=== PATIENT | male | born 1965 | race Caucasian/White ===

== ENCOUNTER 2017-04-16 03:02 | Inpatient (IN) | payer SELFPAY ==
[2017-04-16 03:53] LABS: BASO % 0.2 % (0-2); EOS % 0.2 % (0-7); HCT-HEMATOCRIT 39.8 % (36.0-53.5); HGB-HEMOGLOBIN 12.5 gm/dl (13.5-17.0); IMMATURE GRANULOCYTES ABSOLUTE 0.11 tho/cmm (0-0.03); IMMATURE GRANULOCYTES PERCENT 0.6 % (0-0.3); LYMPH ABSOLUTE COUNT 1.1 tho/cmm (0.8-4.5); MCH (MEAN CORPUSCULAR HGB) 28.3 pg (28.0-32.0); MCHC MEAN CORPUSCULAR HGB CONC 31.4 % (32.0-36.0); MEAN PLATELET VOLUME 8.6 cmc (9.4-12.4); MONO % 4.7 % (0-12); MONOCYTE ABSOLUTE COUNT 0.9 tho/cmm (0.0-1.2); NEUTROPHIL ABSOLUTE COUNT 16.1 tho/cmm (1.6-8.0); NEUTROPHIL-AUTOMATED 16.1 tho/cmm (1.6-8.0); NEUTROPHILS % 88.3 % (40-80); PLATELET COUNT 199 tho/cmm (150-450); RED BLOOD COUNT 4.42 mil/cmm (4.40-5.70); RED CELL DISTRIBUTION WIDTH 14.6 % (12.4-16.4); WHITE BLOOD COUNT 18.2 tho/cmm (4.0-10.0)
[2017-04-16] MEDS ORDERED: ATIVAN2 M1 PO (03:59)
[2017-04-16] MEDS ORDERED: LASIX80 M1 PO (04:00)
[2017-04-16] MEDS ORDERED: NEURONTIN100 M1 PO (04:01)
[2017-04-16] MEDS ORDERED: GLUCOTROL10 M1 PO (04:01)
[2017-04-16] MEDS ORDERED: COZAAR100 M1 PO (04:02)
[2017-04-16] MEDS ORDERED: METOLAZONE10 M1 PO (04:03)
[2017-04-16] MEDS ORDERED: VITAMIN D35000 UNI3 PO (04:04)
[2017-04-16] MEDS ORDERED: NORVASC5 M2 PO (04:04)
[2017-04-16] MEDS ORDERED: BYSTOLIC10 M1 PO (04:05)
[2017-04-16] MEDS ORDERED: SYNTHROID25 MC1 PO (04:05)
[2017-04-16 04:15] LABS: ANION GAP 12 mmol/L (0-20); BLOOD UREA NITROGEN 71 mg/dl (6-24); CALCIUM 6.8 mg/dl (8.5-10.5); CARBON DIOXIDE-VENOUS 24 mmol/L (22-32); CHLORIDE 108 mmol/l (96-110); CREATININE 7.01 mg/dl (0.60-1.30); GLUCOSE 148 mg/dL (70-110); SODIUM 140 mmol/L (135-145); eGFR VALUE FOR BLACK 10 mL/Min
[2017-04-16 08:44] LABS: ABG CO2 ARTERIAL 25 mmol/L (21-27); ARTERIAL BLD GAS O2 SATURATION 92 % (95-98); ARTERIAL BLOOD GAS PCO2 57 mmHg (32-45); ARTERIAL PO2 68 mmHg (70-100); BICARBONATE 23 mmol/L (21-28); BLOOD GAS BASE EXCESS -5 mM/L (-/+3); PH 7.23 Units (7.35-7.45)
[2017-04-16 10:13] LABS: ABG CO2 ARTERIAL 24 mmol/L (21-27); ARTERIAL BLD GAS O2 SATURATION 90 % (95-98); ARTERIAL BLOOD GAS PCO2 48 mmHg (32-45); ARTERIAL PO2 59 mmHg (70-100); BICARBONATE 22 mmol/L (21-28); BLOOD GAS BASE EXCESS -4 mM/L (-/+3); PH 7.29 Units (7.35-7.45)
[2017-04-16 11:14] LABS: PROCALCITONIN 47.05 ng/ml (0.05-0.09)
[2017-04-16] MEDS ORDERED: ATORVASTATIN CA80 M1 PO (15:13)
--- NOTE | 2017-04-16 18:08 | NUR ---
04/16/17 @ [address] GIL ABOUT CENTRAL LINE NEED, DR. GIL DID NOT FEEL IT WAS NECESSARY TO PUT IN A CENTRAL LINE AT THIS TIME. I CONTACTED ABNER HUNT CRNA TO PLACE PIV. PIV WAS PLACED BY ABNER PAREKH. DR. GIL WAS CONTACTED AT 1645 ABOUT POSITIVE BLOOD CULTURES ON PATIENT. DR. GENTILE WAS NOTIFIED AT 1532 ABOUT POSITIVE BLOOD CULTURES AND ABOUT PROBABLE OSTEOMYELITIS. DR. GENTILE IS NOW AWARE. WANTS TO CONTINUE WITH ANTIBIOTICS. KAELYN MONGE RN
[2017-04-17 06:11] LABS: ALB/GLOB RATIO 0.2 (0.8-2.0); ALBUMIN 1.1 g/dl (3.5-5.0); ALKALINE PHOSPHATASE 66 U/L (33-138); ALT/SGPT 16 U/L (12-78); AST/SGOT 14 U/L (10-40); BASO % 0.1 % (0-2); BILIRUBIN,TOTAL 0.3 mg/dl (0.0-1.5); BLOOD UREA NITROGEN 73 mg/dl (6-24); CALCIUM 7.4 mg/dl (8.5-10.5); CARBON DIOXIDE-VENOUS 23 mmol/L (22-32); CHLORIDE 102 mmol/l (96-110); CREATININE 8.74 mg/dl (0.60-1.30); HCT-HEMATOCRIT 37.1 % (36.0-53.5); HGB-HEMOGLOBIN 11.4 gm/dl (13.5-17.0); IMMATURE GRANULOCYTES ABSOLUTE 0.13 tho/cmm (0-0.03); IMMATURE GRANULOCYTES PERCENT 0.7 % (0-0.3); LYMPH ABSOLUTE COUNT 0.4 tho/cmm (0.8-4.5); MCHC MEAN CORPUSCULAR HGB CONC 30.7 % (32.0-36.0); MCV (MEAN CELL VOLUME) 91.2 fl (82.0-96.0); MEAN PLATELET VOLUME 9.5 cmc (9.4-12.4); MONO % 3.5 % (0-12); MONOCYTE ABSOLUTE COUNT 0.7 tho/cmm (0.0-1.2); NEUTROPHIL ABSOLUTE COUNT 17.2 tho/cmm (1.6-8.0); NEUTROPHIL-AUTOMATED 17.2 tho/cmm (1.6-8.0); NEUTROPHILS % 93.7 % (40-80); PHOSPHOROUS 7.6 mg/dl (2.5-4.9); PLATELET COUNT 199 tho/cmm (150-450); RED BLOOD COUNT 4.07 mil/cmm (4.40-5.70); RED CELL DISTRIBUTION WIDTH 14.8 % (12.4-16.4); SODIUM 135 mmol/L (135-145); WHITE BLOOD COUNT 18.3 tho/cmm (4.0-10.0); eGFR VALUE FOR BLACK 7 mL/Min
[2017-04-17 06:13] LABS: ANION GAP 15 mmol/L (0-20); POTASSIUM 5.4 mmol/L (3.7-5.1)
[2017-04-17 06:15] LABS: GLUCOSE 357 mg/dL (70-110)
[2017-04-17 14:44] LABS: PROTHROMBIN TIME 11.9 SECONDS (9.0-13.6)
[2017-04-18 05:25] LABS: INR 0.9 INR (0.9-1.1)
[2017-04-18 05:27] LABS: BASO % 0.1 % (0-2); HGB-HEMOGLOBIN 9.9 gm/dl (13.5-17.0); IMMATURE GRANULOCYTES ABSOLUTE 0.11 tho/cmm (0-0.03); IMMATURE GRANULOCYTES PERCENT 0.6 % (0-0.3); LYMPH % 2.1 % (20-45); LYMPH ABSOLUTE COUNT 0.4 tho/cmm (0.8-4.5); MCH (MEAN CORPUSCULAR HGB) 27.9 pg (28.0-32.0); MCHC MEAN CORPUSCULAR HGB CONC 30.9 % (32.0-36.0); MCV (MEAN CELL VOLUME) 90.1 fl (82.0-96.0); MEAN PLATELET VOLUME 9.1 cmc (9.4-12.4); MONO % 6.9 % (0-12); MONOCYTE ABSOLUTE COUNT 1.3 tho/cmm (0.0-1.2); NEUTROPHIL ABSOLUTE COUNT 16.3 tho/cmm (1.6-8.0); NEUTROPHIL-AUTOMATED 16.3 tho/cmm (1.6-8.0); NEUTROPHILS % 90.3 % (40-80); PLATELET COUNT 205 tho/cmm (150-450); RED BLOOD COUNT 3.55 mil/cmm (4.40-5.70); RED CELL DISTRIBUTION WIDTH 15.2 % (12.4-16.4)
[2017-04-18 05:42] LABS: BLOOD UREA NITROGEN 85 mg/dl (6-24); CALCIUM 7.4 mg/dl (8.5-10.5); CARBON DIOXIDE-VENOUS 23 mmol/L (22-32); CHLORIDE 103 mmol/l (96-110); CREATININE 9.85 mg/dl (0.60-1.30); SODIUM 137 mmol/L (135-145); eGFR VALUE FOR BLACK 6 mL/Min
[2017-04-18 05:49] LABS: ANION GAP 17 mmol/L (0-20); GLUCOSE 141 mg/dL (70-110); POTASSIUM 6.1 mmol/L (3.7-5.1)
[2017-04-19 04:39] LABS: BASO % 0.1 % (0-2); HCT-HEMATOCRIT 29.7 % (36.0-53.5); HGB-HEMOGLOBIN 9.3 gm/dl (13.5-17.0); IMMATURE GRANULOCYTES ABSOLUTE 0.23 tho/cmm (0-0.03); IMMATURE GRANULOCYTES PERCENT 1.6 % (0-0.3); LYMPH % 3.1 % (20-45); LYMPH ABSOLUTE COUNT 0.5 tho/cmm (0.8-4.5); MCH (MEAN CORPUSCULAR HGB) 28.3 pg (28.0-32.0); MCHC MEAN CORPUSCULAR HGB CONC 31.3 % (32.0-36.0); MCV (MEAN CELL VOLUME) 90.3 fl (82.0-96.0); MONO % 6.7 % (0-12); NEUTROPHILS % 88.5 % (40-80); PLATELET COUNT 220 tho/cmm (150-450); RED BLOOD COUNT 3.29 mil/cmm (4.40-5.70); RED CELL DISTRIBUTION WIDTH 15.2 % (12.4-16.4); WHITE BLOOD COUNT 14.7 tho/cmm (4.0-10.0)
[2017-04-19 04:52] LABS: BLOOD UREA NITROGEN 79 mg/dl (6-24); CARBON DIOXIDE-VENOUS 23 mmol/L (22-32); CHLORIDE 101 mmol/l (96-110); CREATININE 9.22 mg/dl (0.60-1.30); PHOSPHOROUS 8.6 mg/dl (2.5-4.9); SODIUM 137 mmol/L (135-145); eGFR VALUE FOR BLACK 7 mL/Min
[2017-04-19 05:05] LABS: ANION GAP 18 mmol/L (0-20); GLUCOSE 269 mg/dL (70-110); POTASSIUM 5.1 mmol/L (3.7-5.1)
[2017-04-19 14:30] LABS: PROCALCITONIN 42.02 ng/ml (0.05-0.09)
[2017-04-20 05:10] LABS: HCT-HEMATOCRIT 28.7 % (36.0-53.5); HGB-HEMOGLOBIN 9.1 gm/dl (13.5-17.0); MCH (MEAN CORPUSCULAR HGB) 28.3 pg (28.0-32.0); MCHC MEAN CORPUSCULAR HGB CONC 31.7 % (32.0-36.0); MCV (MEAN CELL VOLUME) 89.4 fl (82.0-96.0); MEAN PLATELET VOLUME 9.1 cmc (9.4-12.4); NEUTROPHIL-AUTOMATED 11.8 tho/cmm (1.6-8.0); PLATELET COUNT 226 tho/cmm (150-450); RED BLOOD COUNT 3.21 mil/cmm (4.40-5.70); RED CELL DISTRIBUTION WIDTH 14.9 % (12.4-16.4); WHITE BLOOD COUNT 13.7 tho/cmm (4.0-10.0)
[2017-04-20 05:18] LABS: C-REACTIVE PROTEIN 13.6 mg/dl (0-0.9)
[2017-04-20 05:33] LABS: PROCALCITONIN 32.66 ng/ml (0.05-0.09)
[2017-04-20 06:46] LABS: BAND % 16 % (0-20); BAND ABSOLUTE COUNT 2.2 tho/cmm (0-2.0)
--- NOTE | 2017-04-20 09:00 | NUR ---
PT REFUSING TO HAVE FARIHA WRAPS TO BLE. STATES " THEY MAKE THEM WORSE."
--- NOTE | 2017-04-20 18:15 | NUR ---
LATE ENTRY FROM 04/19: PATIENT REFUSING FARIHA WRAPS TO BLE. STATES THEY MAKE HIS LEGS MORE SWOLLEN. EDUCATED PATIENT ON HOW THEY HELP WITH SWELLING, PATIENT GETTING MORE AGITATED. WRAPPED LEFT LOWER LEG WITH KERLIX OVER WOUND AND PATIENT TOOK IT OFF AFTER A COUPLE HOURS STATING IT WAS MAKING IT WORSE. SO COVERED WOUND WITH ISLAND DRESSING. ALSO SEEN PATIENT EATING A RUNZA HAMBURGER AND TOLD HIM THAT WASN'T A HEALTHY CHOICE AND SISTER STATES "HE CAN EAT IT, AT LEAST IT IS BETTER THAN [place] AND IS ACTUALLY REAL MEAT." TOLD PATIENT AND FAMILY THAT HE IS ON A DIET FOR HIS KIDNEYS AND TO HELP WITH SWELLING AND THAT FAST FOOD HAS A LOT OF SODIUM IN IT. PATIENT AND FAMILY NOT RECEPTIVE TO INFORMATION.
[2017-04-21 06:13] LABS: HCT-HEMATOCRIT 32.2 % (36.0-53.5); HGB-HEMOGLOBIN 9.9 gm/dl (13.5-17.0); MCH (MEAN CORPUSCULAR HGB) 27.7 pg (28.0-32.0); MCHC MEAN CORPUSCULAR HGB CONC 30.7 % (32.0-36.0); MCV (MEAN CELL VOLUME) 90.2 fl (82.0-96.0); MEAN PLATELET VOLUME 9.3 cmc (9.4-12.4); NEUTROPHIL-AUTOMATED 10.1 tho/cmm (1.6-8.0); PLATELET COUNT 262 tho/cmm (150-450); RED BLOOD COUNT 3.57 mil/cmm (4.40-5.70); RED CELL DISTRIBUTION WIDTH 14.8 % (12.4-16.4); WHITE BLOOD COUNT 12.8 tho/cmm (4.0-10.0)
[2017-04-21 06:20] LABS: BASO % 0.2 % (0-2); EOS % 0.3 % (0-7); IMMATURE GRANULOCYTES ABSOLUTE 0.87 tho/cmm (0-0.03); IMMATURE GRANULOCYTES PERCENT 6.8 % (0-0.3); LYMPH % 6.8 % (20-45); LYMPH ABSOLUTE COUNT 0.9 tho/cmm (0.8-4.5); MONO % 6.6 % (0-12); MONOCYTE ABSOLUTE COUNT 0.8 tho/cmm (0.0-1.2); NEUTROPHIL ABSOLUTE COUNT 10.1 tho/cmm (1.6-8.0); NEUTROPHILS % 79.3 % (40-80)
[2017-04-21 06:31] LABS: ALBUMIN 1.3 g/dl (3.5-5.0); BLOOD UREA NITROGEN 106 mg/dl (6-24); C-REACTIVE PROTEIN 10.9 mg/dl (0-0.9); CALCIUM 7.4 mg/dl (8.5-10.5); CARBON DIOXIDE-VENOUS 24 mmol/L (22-32); CHLORIDE 101 mmol/l (96-110); GLUCOSE 151 mg/dL (70-110); SODIUM 138 mmol/L (135-145)
[2017-04-21 06:36] LABS: ANION GAP 19 mmol/L (0-20)
[2017-04-21 06:37] LABS: eGFR VALUE FOR BLACK 5 mL/Min
[2017-04-21 06:59] LABS: PROCALCITONIN 22.76 ng/ml (0.05-0.09)
[2017-04-21 07:01] LABS: PHOSPHOROUS 10.2 mg/dl (2.5-4.9)
[2017-04-22 05:19] LABS: HCT-HEMATOCRIT 33.3 % (36.0-53.5); HGB-HEMOGLOBIN 10.4 gm/dl (13.5-17.0); MCH (MEAN CORPUSCULAR HGB) 28.3 pg (28.0-32.0); MCHC MEAN CORPUSCULAR HGB CONC 31.2 % (32.0-36.0); MCV (MEAN CELL VOLUME) 90.7 fl (82.0-96.0); MEAN PLATELET VOLUME 9.1 cmc (9.4-12.4); NEUTROPHIL-AUTOMATED 7.3 tho/cmm (1.6-8.0); PLATELET COUNT 258 tho/cmm (150-450); RED BLOOD COUNT 3.67 mil/cmm (4.40-5.70); RED CELL DISTRIBUTION WIDTH 14.8 % (12.4-16.4); WHITE BLOOD COUNT 11.5 tho/cmm (4.0-10.0)
[2017-04-22 05:27] LABS: BASO % 0.3 % (0-2); EOS % 3.7 % (0-7); EOSINOPHIL ABSOLUTE COUNT 0.4 tho/cmm (0.0-0.7); IMMATURE GRANULOCYTES ABSOLUTE 1.45 tho/cmm (0-0.03); IMMATURE GRANULOCYTES PERCENT 12.6 % (0-0.3); LYMPH % 11.7 % (20-45); LYMPH ABSOLUTE COUNT 1.3 tho/cmm (0.8-4.5); MONO % 7.9 % (0-12); MONOCYTE ABSOLUTE COUNT 0.9 tho/cmm (0.0-1.2); NEUTROPHIL ABSOLUTE COUNT 7.3 tho/cmm (1.6-8.0); NEUTROPHILS % 63.8 % (40-80)
[2017-04-22 05:33] LABS: ALBUMIN 1.3 g/dl (3.5-5.0); BLOOD UREA NITROGEN 82 mg/dl (6-24); C-REACTIVE PROTEIN 8.3 mg/dl (0-0.9); CALCIUM 7.3 mg/dl (8.5-10.5); CARBON DIOXIDE-VENOUS 24 mmol/L (22-32); CHLORIDE 101 mmol/l (96-110); GLUCOSE 105 mg/dL (70-110); SODIUM 137 mmol/L (135-145)
[2017-04-22 05:38] LABS: ANION GAP 17 mmol/L (0-20); POTASSIUM 4.9 mmol/L (3.7-5.1)
[2017-04-22 05:39] LABS: eGFR VALUE FOR BLACK 6 mL/Min
[2017-04-22 05:59] LABS: PROCALCITONIN 14.26 ng/ml (0.05-0.09)
[2017-04-22 06:21] LABS: PHOSPHOROUS 8.7 mg/dl (2.5-4.9)
[2017-04-22 07:16] LABS: POTASSIUM 6.2 mmol/L (3.7-5.1)
[2017-04-23 06:25] LABS: HCT-HEMATOCRIT 32.7 % (36.0-53.5); HGB-HEMOGLOBIN 10.2 gm/dl (13.5-17.0); MCH (MEAN CORPUSCULAR HGB) 27.9 pg (28.0-32.0); MCHC MEAN CORPUSCULAR HGB CONC 31.2 % (32.0-36.0); MCV (MEAN CELL VOLUME) 89.6 fl (82.0-96.0); NEUTROPHIL-AUTOMATED 8.1 tho/cmm (1.6-8.0); PLATELET COUNT 275 tho/cmm (150-450); RED BLOOD COUNT 3.65 mil/cmm (4.40-5.70); RED CELL DISTRIBUTION WIDTH 14.5 % (12.4-16.4); WHITE BLOOD COUNT 13.4 tho/cmm (4.0-10.0)
[2017-04-23 06:26] LABS: BASO % 0.3 % (0-2); EOS % 4.7 % (0-7); EOSINOPHIL ABSOLUTE COUNT 0.6 tho/cmm (0.0-0.7); IMMATURE GRANULOCYTES ABSOLUTE 2.17 tho/cmm (0-0.03); IMMATURE GRANULOCYTES PERCENT 16.2 % (0-0.3); LYMPH % 8.3 % (20-45); LYMPH ABSOLUTE COUNT 1.1 tho/cmm (0.8-4.5); MONO % 10.1 % (0-12); MONOCYTE ABSOLUTE COUNT 1.4 tho/cmm (0.0-1.2); NEUTROPHIL ABSOLUTE COUNT 8.1 tho/cmm (1.6-8.0); NEUTROPHILS % 60.4 % (40-80)
[2017-04-23 06:33] LABS: INR 1.1 INR (0.9-1.1); PROTHROMBIN TIME 13.1 SECONDS (9.0-13.6)
[2017-04-23 06:41] LABS: ANION GAP 19 mmol/L (0-20); BLOOD UREA NITROGEN 77 mg/dl (6-24); CALCIUM 7.3 mg/dl (8.5-10.5); CARBON DIOXIDE-VENOUS 24 mmol/L (22-32); CHLORIDE 100 mmol/l (96-110); CREATININE 9.51 mg/dl (0.60-1.30); GLUCOSE 86 mg/dL (70-110); POTASSIUM 4.5 mmol/L (3.7-5.1); SODIUM 138 mmol/L (135-145); eGFR VALUE FOR BLACK 7 mL/Min
[2017-04-23 07:07] LABS: WBC MORPHOLOGY TOXIC GRANULATION
[2017-04-24 05:12] LABS: HCT-HEMATOCRIT 32.8 % (36.0-53.5); HGB-HEMOGLOBIN 10.3 gm/dl (13.5-17.0); MCH (MEAN CORPUSCULAR HGB) 28.1 pg (28.0-32.0); MCHC MEAN CORPUSCULAR HGB CONC 31.4 % (32.0-36.0); MCV (MEAN CELL VOLUME) 89.6 fl (82.0-96.0); MEAN PLATELET VOLUME 9.2 cmc (9.4-12.4); NEUTROPHIL-AUTOMATED 8.4 tho/cmm (1.6-8.0); PLATELET COUNT 301 tho/cmm (150-450); RED BLOOD COUNT 3.66 mil/cmm (4.40-5.70); RED CELL DISTRIBUTION WIDTH 14.5 % (12.4-16.4); WHITE BLOOD COUNT 12.2 tho/cmm (4.0-10.0)
[2017-04-24 05:14] LABS: BASO % 0.2 % (0-2); EOSINOPHIL ABSOLUTE COUNT 0.5 tho/cmm (0.0-0.7); IMMATURE GRANULOCYTES ABSOLUTE 1.56 tho/cmm (0-0.03); IMMATURE GRANULOCYTES PERCENT 12.8 % (0-0.3); LYMPH % 8.5 % (20-45); MONO % 5.3 % (0-12); MONOCYTE ABSOLUTE COUNT 0.7 tho/cmm (0.0-1.2); NEUTROPHIL ABSOLUTE COUNT 8.4 tho/cmm (1.6-8.0); NEUTROPHILS % 69.2 % (40-80)
[2017-04-24 05:29] LABS: ALBUMIN 1.4 g/dl (3.5-5.0); BLOOD UREA NITROGEN 99 mg/dl (6-24); CALCIUM 7.4 mg/dl (8.5-10.5); CARBON DIOXIDE-VENOUS 19 mmol/L (22-32); CHLORIDE 106 mmol/l (96-110); SODIUM 139 mmol/L (135-145); eGFR VALUE FOR BLACK 5 mL/Min
[2017-04-24 05:30] LABS: ANION GAP 20 mmol/L (0-20); GLUCOSE 134 mg/dL (70-110)
[2017-04-24 05:31] LABS: POTASSIUM 5.7 mmol/L (3.7-5.1)
[2017-04-24 05:40] LABS: PHOSPHOROUS 9.5 mg/dl (2.5-4.9)
[2017-04-24] MEDS ORDERED: PERCOCET 5-3251 EACH PO (16:29)
[2017-04-24] MEDS ORDERED: AVELOX400 M1 PO (16:34)
[2017-04-24] MEDS ORDERED: CALCIUM CARBON500 M2 PO (16:35)
[2017-04-24] MEDS ORDERED: ANORO ELLIPTA1 EAC1 INH (16:35)
== END 2017-04-24 17:36 | disposition home health service (06) | DRG 853 ==
LOC: CCU 03:02 → PCUA 04-18 19:12 → 5WE 04-23 22:27
PROVIDERS: Family Medicine; Internal Medicine; Internal Medicine Infectious Disease; Internal Medicine Nephrology; Physician Assistant Medical; Radiology Diagnostic Radiology; ADMIT Hospitalist
PROC: 5A09357 Assistance with Respiratory Ventilation, Less than 24 Consecutive Hours, Continuous Positive Airway Pressure (ICD-10-PCS; principal; 2017-04-16)
PROC: 0JBR0ZZ Excision of Left Foot Subcutaneous Tissue and Fascia, Open Approach (ICD-10-PCS; 2017-04-16)
PROC: 5A1D60Z (ICD-10-PCS; 2017-04-16)
PROC: 02H633Z Insertion of Infusion Device into Right Atrium, Percutaneous Approach (ICD-10-PCS; 2017-04-18)
PROC: B214YZZ Fluoroscopy of Right Heart using Other Contrast (ICD-10-PCS; 2017-04-18)
PROC: 0JH63XZ Insertion of Tunneled Vascular Access Device into Chest Subcutaneous Tissue and Fascia, Percutaneous Approach (ICD-10-PCS; 2017-04-23)
PROC: 02H633Z Insertion of Infusion Device into Right Atrium, Percutaneous Approach (ICD-10-PCS; 2017-04-23)
PROC: B214YZZ Fluoroscopy of Right Heart using Other Contrast (ICD-10-PCS; 2017-04-23)
DX: A40.3 Sepsis due to Streptococcus pneumoniae (principal); N18.6 End stage renal disease; J96.21 Acute and chronic respiratory failure with hypoxia; I13.2 Hypertensive heart and chronic kidney disease with heart failure and with stage 5 chronic kidney disease, or end stage renal disease; N17.9 Acute kidney failure, unspecified; E46 Unspecified protein-calorie malnutrition; E87.0 Hyperosmolality and hypernatremia; I42.9 Cardiomyopathy, unspecified; J96.22 Acute and chronic respiratory failure with hypercapnia; L03.116 Cellulitis of left lower limb; M86.672 Other chronic osteomyelitis, left ankle and foot; N25.81 Secondary hyperparathyroidism of renal origin; Z68.43 Body mass index [BMI] 50.0-59.9, adult; E11.21 Type 2 diabetes mellitus with diabetic nephropathy; E11.22 Type 2 diabetes mellitus with diabetic chronic kidney disease; Z99.2 Dependence on renal dialysis; E66.01 Morbid (severe) obesity due to excess calories; G47.33 Obstructive sleep apnea (adult) (pediatric); E11.69 Type 2 diabetes mellitus with other specified complication; D63.1 Anemia in chronic kidney disease; E11.649 Type 2 diabetes mellitus with hypoglycemia without coma; E03.9 Hypothyroidism, unspecified; J45.909 Unspecified asthma, uncomplicated; I25.2 Old myocardial infarction; I50.9 Heart failure, unspecified; I16.0 Hypertensive urgency; J44.9 Chronic obstructive pulmonary disease, unspecified; E87.5 Hyperkalemia; F17.210 Nicotine dependence, cigarettes, uncomplicated; I25.10 Atherosclerotic heart disease of native coronary artery without angina pectoris; E11.621 Type 2 diabetes mellitus with foot ulcer; L97.529 Non-pressure chronic ulcer of other part of left foot with unspecified severity; E88.09 Other disorders of plasma-protein metabolism, not elsewhere classified; E11.42 Type 2 diabetes mellitus with diabetic polyneuropathy
CPT/HCPCS: C1750; C1752; C1769; C8929; J0690; J0696; J0885; J1644; J1815; J1940; J2250; J2270; J2543; J2920; J3010; J3370; J7512